=== PATIENT | male | born 1950 | race African-American/Black ===

== ENCOUNTER 2021-04-06 23:39 | Emergency (ER) | payer SELFPAY ==
[~2021-04-06] VITALS: Ht 167.6 cm; Wt 98.7 kg
[2021-04-06 23:40] VITALS: BP 168/85
--- NOTE | 2021-04-07 01:48 | REPVR ---
PROCEDURE INFORMATION: Exam: XR Left Hip Exam date and time: 04/06/2021 12:48 AM Age: 70 years old Clinical indication: Other: Fall injury TECHNIQUE: Imaging protocol: XR Left hip. Views: 2 or 3 views hip with pelvis when performed. COMPARISON: No relevant prior studies available. FINDINGS: Bones/joints: Mild degenerative joint disease. Soft tissues: Unremarkable. IMPRESSION: No acute findings. Electronically signed by: Matthew Taylor On 04/07/2021 01:47:32 AM
[2021-04-07] MEDS ORDERED: IBUP-1022 PO (10:26)
== END 2021-04-07 02:45 | disposition left against medical advice (07) ==
LOC: M ED 23:39
DX: Z53.21 Procedure and treatment not carried out due to patient leaving prior to being seen by health care provider (principal)

== ENCOUNTER 2021-04-07 08:21 | Emergency (ER) | payer MEDICARE, SELFPAY ==
[~2021-04-07] VITALS: Ht 167.6 cm; Wt 98.2 kg
--- NOTE | 2021-04-07 10:10 | REPVR ---
PROCEDURE INFORMATION: Exam: CT Lumbar Spine Without Contrast Exam date and time: 04/07/2021 9:35 AM Age: 70 years old Clinical indication: Injury or trauma; Fall; Blunt trauma (contusions or hematomas); Additional info: [place], vertebral tenderness TECHNIQUE: Imaging protocol: Computed tomography images of the lumbar spine without contrast. Radiation optimization: All CT scans at this facility use at least one of these dose optimization techniques: automated exposure control; mA and/or kV adjustment per patient size (includes targeted exams where dose is matched to clinical indication); or iterative reconstruction. COMPARISON: No relevant prior studies available. FINDINGS: Vertebrae: No acute fracture. No subluxation. Discs/Spinal canal/Neural foramina: There are degenerative changes. There are disc bulges, facet degenerative changes. There is mild L2-L3 through L5-S1 neural foraminal narrowing. L3-L4 likely shows mild spinal stenosis and L4-L5 moderate spinal stenosis. Sacrum/coccyx: There are bridging enthesophytes along anterior sacroiliac joints. There are vertebral enthesophytes greater on left at L1-L2 and L2-L3. Kidneys and ureters: Partially visualized parapelvic renal cysts. Soft tissues: Unremarkable. IMPRESSION: No evidence of acute fracture. Other nonacute findings as described. COMMENTS: Consistent with the [employer]'s Incidental Findings Committee white paper (J Am Nakia Radiol 2018): Any incidental renal lesion less than 1 cm or classified as too small to characterize, or any incidental cystic renal lesion characterized as simple-appearing, is likely benign. No follow-up imaging is recommended for these lesions per consensus recommendations based on imaging criteria. Electronically signed by: Jeniffer Meade On 04/07/2021 10:10:04 AM
--- NOTE | 2021-04-07 10:13 | REPVR ---
PROCEDURE INFORMATION: Exam: CT Thoracic Spine Without Contrast Exam date and time: 04/07/2021 9:35 AM Age: 70 years old Clinical indication: Injury or trauma; Fall; Blunt trauma (contusions or hematomas); Additional info: [place], vertebral tenderness TECHNIQUE: Imaging protocol: Computed tomography images of the thoracic spine without contrast. Radiation optimization: All CT scans at this facility use at least one of these dose optimization techniques: automated exposure control; mA and/or kV adjustment per patient size (includes targeted exams where dose is matched to clinical indication); or iterative reconstruction. COMPARISON: No relevant prior studies available. FINDINGS: Vertebrae: No evidence of acute fracture. There is mild reverse S shaped thoracic scoliosis. Discs/Spinal canal/Neural foramina: There is no evidence of thoracic spinal stenosis. Soft tissues: There marginal enthesophytes. 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 There are degenerative changes with disc height loss and osteophytes noted in lower to mid cervical spine. IMPRESSION: No acute fracture. Other findings as described. Electronically signed by: Jeniffer Meade On 04/07/2021 10:12:56 AM
[2021-04-07] MEDS ORDERED: IBUPROFEN 800 MG TAB PO ONE (10:25)
[2021-04-07] MEDS ORDERED: IBUP-1022 PO (10:26)
[2021-04-07 10:30] VITALS: BP 157/81
== END 2021-04-07 10:40 | disposition home or self-care (01) ==
LOC: M ED 08:21
DX: M25.552 Pain in left hip (principal); M54.9 Dorsalgia, unspecified

== ENCOUNTER → 2021-04-11 | Outpatient (CLI) | payer MEDICARE ==
[~2021-04-11] MED LIST: IBUP-1022 PO
--- NOTE | 2021-04-11 10:29 | REP ---
INDICATION: LOW BACK PAIN, PAIN. COMPARISON: None. TECHNIQUE: AP, lateral, coned-down views of the lumbosacral spine. FINDINGS: Moderate to advanced multilevel degenerative changes include endplate sclerosis, osteophytosis, facet hypertrophy, and minimal scattered disc space narrowing. Alignment and lordosis maintained. No acute fracture/compression injury or subluxation. IMPRESSION: Multilevel degenerative spondylosis. <Electronically signed by Lisandro Malhotra > 04/11/21 101
--- NOTE | 2021-04-11 10:29 | REP ---
INDICATION: LOW BACK PAIN, PAIN. COMPARISON: None. TECHNIQUE: AP and lateral views right tibia/fibula. FINDINGS: No acute knee and ankle joint appear intact and normal. Fracture or dislocation. Small vascular calcifications noted in the soft tissues. IMPRESSION: Essentially age-appropriate examination of the right tibia/fibula. <Electronically signed by Lisandro Malhotra > 04/11/21 1011
== END ==
LOC: M SOG 09:50
PROVIDERS: ATTEND Orthopaedic Surgery
DX: M47.817 Spondylosis without myelopathy or radiculopathy, lumbosacral region (principal); M54.5 Low back pain; M79.604 Pain in right leg

== ENCOUNTER 2021-04-17 07:01 | Outpatient (RCR) | payer MEDICARE | END 2021-04-18 | LOC: M PT 07:01 | PROVIDERS: ATTEND Orthopaedic Surgery | DX: M43.07 Spondylolysis, lumbosacral region (principal); M75.41 Impingement syndrome of right shoulder ==

== ENCOUNTER 2021-05-15 10:00 | Outpatient (RCR) | payer MEDICARE | END 2021-05-18 | LOC: M PT 10:00 | PROVIDERS: ATTEND Orthopaedic Surgery | DX: M43.07 Spondylolysis, lumbosacral region (principal); M75.41 Impingement syndrome of right shoulder ==

== ENCOUNTER 2021-06-05 12:49 | Outpatient (RCR) | payer MEDICARE | END 2021-06-18 | LOC: M PT 12:49 | PROVIDERS: ATTEND Orthopaedic Surgery | DX: M43.07 Spondylolysis, lumbosacral region (principal); M75.41 Impingement syndrome of right shoulder ==